=== PATIENT | female | born 1985 | race American Indian/Alaskan Native ===

== ENCOUNTER 2021-11-03 01:19 | Emergency (ER) | payer MEDICAID ==
[2021-11-03 03:44] LABS: Bilirubin,Urine NEG (Negative); Blood,Urine SM (Negative); Color,Urine Yellow (Yellow); Protein,Urine <15 mg/dL mg/dL (Negative); Urobilinogen,Urine < 2.0 mg/dL (<2.0)
[2021-11-03 03:45] LABS: HCG Qualitative,Urine Negative (Negative)
[2021-11-03 04:21] VITALS: BP 96/53
[2021-11-03] MEDS ORDERED: SODIUM CHLORIDE 0.9% 1000 ML 1,000 ML IV ONE (04:28)
[2021-11-03] MEDS ORDERED: cefTRIAXone/NS 1 GM/50 ML 1 GM/50 ML BAG IV ONE (04:29)
--- NOTE | 2021-11-03 04:33 | Emergency Department Report ---
HPI - General Chief Complaint: Urogenital-Female Time Seen by Provider: 11/03/21 03:28 - HPI HPI: 36-year-old female with no known past medical history presents complaining of approximately 1 week of urinary frequency as well as mid abdominal cramping pain. The patient states that the symptoms came on gradually and she describes the pain as a constant ache with occasional cramping. She also reports that she had sexual intercourse last night which caused the pain to be much worse. Of note, she reports she had a urinary tract infection 3 weeks ago which was treated with antibiotics with subsequent resolution of her symptoms until the a forementioned symptoms described. There are no known aggravating or alleviating factors. She has not tried anything for her symptoms. Her LMP was October 11. She does report that in general her blood pressure runs low. She denies any associated dysuria, vaginal bleeding, vaginal discharge, headache, fever/chills, vision change, neck pain, chest pain, shortness of breath, cough, nausea/vomiting, focal weakness, sensory changes, or any other complaints ED Past Medical Hx - Past Medical History Previous Medical History?: No - Medications Home Medications: Home Medications Medication Instructions Recorded Confirmed Last Taken Type Cefpodoxime Proxetil 100 mg PO BID #14 11/03/21 Unknown Rx Ibuprofen [Motrin 600 MG tab] 600 mg PO Q8H PRN #20 tablet 11/03/21 Unknown Rx ED Review of Systems ROS: Stated complaint: LOWER ABD PAIN Other details as noted in HPI Comment: All other systems reviewed and negative Constitutional: denies: chills, fever Eyes: denies: eye pain, vision change ENT: denies: throat pain, congestion Respiratory: denies: cough, shortness of breath Cardiovascular: denies: chest pain, palpitations Gastrointestinal: abdominal pain. denies: nausea, vomiting, diarrhea, constipation Genitourinary: frequency. denies: dysuria, hematuria, discharge Musculoskeletal: denies: back pain, arthralgia Skin: denies: rash, lesions Neurological: denies: headache, weakness, numbness Hematological/Lymphatic: denies: easy bleeding Physical Exam - Physical Exam Vital Signs: Vital Signs 11/03/21 11/03/21 11/03/21 02:53 03:31 03:45 Temperature 98.2 F Pulse Rate 85 77 Respiratory 16 16 Rate Blood Pressure 106/59 106/59 Blood Pressure 111/68 [Right] O2 Sat by Pulse 100 100 100 Oximetry 11/03/21 11/03/21 04:01 04:15 Temperature Pulse Rate 83 Respiratory 15 Rate Blood Pressure 96/53 96/53 Blood Pressure [Right] O2 Sat by Pulse 100 100 Oximetry Physical Exam: GENERAL: Well developed and well nourished. No acute distress HEAD: Normocephalic. No obvious signs of trauma. ENT: Dry mucous membranes. EYES: Extraocular movements are intact. Pupils are equal round and reactive to light bilaterally NECK: Supple. Full ROM is intact. Trachea is midline. LUNGS: Nonlabored breathing. Equal chest rise bilaterally. Clear to auscultation bilaterally. CARDIOVASCULAR: Regular rate and rhythm. No murmurs or rubs. VASCULAR: Cap refill < 2 seconds ABDOMEN: Abdomen is soft and nondistended. There is mild tenderness to palpation in the right upper quadrant and right lower quadrant without guarding or rebound tenderness. SKIN: Skin is warm and dry NEURO: Patient is awake, alert, and oriented. 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 No focal deficits. Normal motor and sensory exam throughout. Normal speech. MUSCULOSKELETAL: No obvious deformities. No significant tenderness. Normal ROM throughout. BACK/SPINE: No midline tenderness or step-offs of the C/T/L spine. No costovertebral angle tenderness. ED Course Vital Signs 11/03/21 11/03/21 11/03/21 02:53 03:31 03:45 Temperature 98.2 F Pulse Rate 85 77 Respiratory 16 16 Rate Blood Pressure 106/59 106/59 Blood Pressure 111/68 [Right] O2 Sat by Pulse 100 100 100 Oximetry 11/03/21 11/03/21 04:01 04:15 Temperature Pulse Rate 83 Respiratory 15 Rate Blood Pressure 96/53 96/53 Blood Pressure [Right] O2 Sat by Pulse 100 100 Oximetry ED Medical Decision Making - Lab Data Result diagrams: 11/03/21 04:27 11/03/21 04:27 Lab Results 11/03/21 11/03/21 11/03/21 Range/Units 03:20 04:27 04:27 WBC 10.0 (4.5-11.0) K/mm3 RBC 4.59 (3.65-5.03) M/mm3 Hgb 11.6 (10.1-14.3) gm/dl Hct 35.4 (30.3-42.9) % MCV 77 L (79-97) fl MCH 25 L (28-32) pg MCHC 33 (30-34) % RDW 14.4 (13.2-15.2) % Plt Count 220 (140-440) K/mm3 Lymph % (Auto) 15.1 (13.4-35.0) % [place] % (Auto) 6.8 (0.0-7.3) % Eos % (Auto) 1.0 (0.0-4.3) % Baso % (Auto) 0.3 (0.0-1.8) % Lymph # (Auto) 1.5 (1.2-5.4) K/mm3 [place] # (Auto) 0.7 (0.0-0.8) K/mm3 Eos # (Auto) 0.1 (0.0-0.4) K/mm3 Baso # (Auto) 0.0 (0.0-0.1) K/mm3 Seg Neutrophils % 76.8 H (40.0-70.0) % Seg Neutrophils # 7.7 (1.8-7.7) K/mm3 Sodium 138 (137-145) mmol/L Potassium 3.7 (3.6-5.0) mmol/L Chloride 102.5 (98-107) mmol/L Carbon Dioxide 22 (22-30) mmol/L Anion Gap 17 mmol/L BUN 10 (7-17) mg/dL Creatinine 0.7 (0.6-1.2) mg/dL Estimated GFR > 60 ml/min BUN/Creatinine Ratio 14 % Glucose 90 (65-100) mg/dL Calcium 9.3 (8.4-10.2) mg/dL Total Bilirubin 0.40 (0.1-1.2) mg/dL Direct Bilirubin < 0.2 (0-0.2) mg/dL Indirect Bilirubin 0.2 mg/dL AST 13 (5-40) units/L ALT 11 (7-56) units/L Alkaline Phosphatase 62 (35-129) units/L Total Protein 8.3 H (6.3-8.2) g/dL Albumin 4.5 (3.9-5) g/dL Albumin/Globulin Ratio 1.2 % Lipase 22 (13-60) units/L HCG, Qual (Negative) Urine Color Yellow (Yellow) Urine Turbidity Clear (Clear) Urine pH 6.0 (5.0-7.0) Ur Specific [place] 1.013 (1.003-1.030) Urine Protein <15 mg/dl (Negative) mg/dL Urine Glucose (UA) Neg (Negative) mg/dL Urine Ketones Neg (Negative) mg/dL Urine Blood Sm (Negative) Urine Nitrite Neg (Negative) Urine Bilirubin Neg (Negative) Urine Urobilinogen < 2.0 (<2.0) mg/dL Ur Leukocyte Esterase Tr (Negative) Urine WBC (Auto) 13.0 H (0.0-6.0) /HPF Urine RBC (Auto) 1.0 (0.0-6.0) /HPF U Epithel Cells (Auto) 1.0 (0-13.0) /HPF Urine HCG, Qual Negative (Negative) 11/03/21 Range/Units 04:27 WBC (4.5-11.0) K/mm3 RBC (3.65-5.03) M/mm3 Hgb (10.1-14.3) gm/dl Hct (30.3-42.9) % MCV (79-97) fl MCH (28-32) pg MCHC (30-34) % RDW (13.2-15.2) % Plt Count (140-440) K/mm3 Lymph % (Auto) (13.4-35.0) % [place] % (Auto) (0.0-7.3) % Eos % (Auto) (0.0-4.3) % Baso % (Auto) (0.0-1.8) % Lymph # (Auto) (1.2-5.4) K/mm3 [place] # (Auto) (0.0-0.8) K/mm3 Eos # (Auto) (0.0-0.4) K/mm3 Baso # (Auto) (0.0-0.1) K/mm3 Seg Neutrophils % (40.0-70.0) % Seg Neutrophils # (1.8-7.7) K/mm3 Sodium (137-145) mmol/L Potassium (3.6-5.0) mmol/L Chloride (98-107) mmol/L Carbon Dioxide (22-30) mmol/L Anion Gap mmol/L BUN (7-17) mg/dL Creatinine (0.6-1.2) mg/dL Estimated GFR ml/min BUN/Creatinine Ratio % Glucose (65-100) mg/dL Calcium (8.4-10.2) mg/dL Total Bilirubin (0.1-1.2) mg/dL Direct Bilirubin (0-0.2) mg/dL Indirect Bilirubin mg/dL AST (5-40) units/L ALT (7-56) units/L Alkaline Phosphatase (35-129) units/L Total Protein (6.3-8.2) g/dL Albumin (3.9-5) g/dL Albumin/Globulin Ratio % Lipase (13-60) units/L HCG, Qual Negative (Negative) Urine Color (Yellow) Urine Turbidity (Clear) Urine pH (5.0-7.0) Ur Specific [place] (1.003-1.030) Urine Protein (Negative) mg/dL Urine Glucose (UA) (Negative) mg/dL Urine Ketones (Negative) mg/dL Urine Blood (Negative) Urine Nitrite (Negative) Urine Bilirubin (Negative) Urine Urobilinogen (<2.0) mg/dL Ur Leukocyte Esterase (Negative) Urine WBC (Auto) (0.0-6.0) /HPF Urine RBC (Auto) (0.0-6.0) /HPF U Epithel Cells (Auto) (0-13.0) /HPF Urine HCG, Qual (Negative) - Radiology Data Radiology results: report reviewed - Medical Decision Making 36-year-old female presenting with 1 week of urinary frequency and mid abdominal cramping pain which was worsened by sexual intercourse last night. On initial assessment, the patient is afebrile and with normal vital signs. On physical examination she has dry mucous membranes and tenderness to palpation of the right upper quadrant > right lower quadrant without guarding or rebound. She has no CVA tenderness. No vaginal bleeding, dysuria, or discharge on review of systems. We will perform broad work-up with a full set of labs and CT of the abdomen pelvis to assess for evidence of cholecystitis versus pyelonephritis versus colitis versus pancreatitis versus appendicitis versus other abnormality to explain the patient's presentation. We will give 1 L of IV fluids and reassess frequently. Labs reveal no significant leukocytosis or anemia. Kidney function is normal and there are no significant electrolyte abnormalities. test is negative. Urinalysis is consistent with a urinary tract infection. We will give 1 dose of ceftriaxone. Repeat assessment, the patient reports that she already feels better after receiving IV fluids. Therefore I will not order pain medications at this time. CT of the abdomen pelvis reveals finding only of a small right ovarian cyst. On repeat assessment at 6:34 PM, the patient is resting comfortably in the bed. She reports she remains symptomatically improved. I spoke with the patient about the CT results as well as the results of the urinalysis and how it can result in pain and dyspareunia as well as the possibility of ovarian cyst rupture which can be particularly painful. We will planned to treat the patient with Cefpodoxime for urinary tract infection as an outpatient with instructions to follow-up with [facility]. The patient expressed understanding and agreement with this plan of care. She was given strict return precautions Critical care attestation.: If time is entered above; I have spent that time in minutes in the direct care of this critically ill patient, excluding procedure time. ED Disposition Clinical Impression: UTI (urinary tract infection), Right ovarian cyst Disposition: 01 HOME / SELF CARE / HOMELESS Is pt being admited?: No Condition: Stable Instructions: Urinary Tract Infection, Adult, Ovarian Cyst, [id number] Additional Instructions: Follow-up with your primary care doctor or [facility] over the next several days to have full STD testing. Return to the emergency department should you develop persistent/worsening pain, fever, nausea/vomiting, or any other new health concerns. Prescriptions: Cefpodoxime Proxetil 100 mg PO BID #14 Ibuprofen [Motrin 600 MG tab] 600 mg PO Q8H PRN #20 tablet PRN Reason: Pain Referrals: JEROME RESENDEZ MD [Primary Care Provider] - 3-5 Days KULWINDER JARQUIN MD [Staff Physician] - 3-5 Days [facility] [Provider Group] - 3-5 Days
[2021-11-03 04:45] LABS: Basophils % (Auto) 0.3 % (0.0-1.8); Eosinophils # (Auto) 0.1 K/mm3 (0.0-0.4); Hematocrit 35.4 % (30.3-42.9); Hemoglobin 11.6 gm/dl (10.1-14.3); Lymphocytes # (Auto) 1.5 K/mm3 (1.2-5.4); Lymphocytes % (Auto) 15.1 % (13.4-35.0); Mean Corpuscular HGB Conc 33 % (30-34); Mean Corpuscular Volume 77 fl (79-97); Monocytes # (Auto) 0.7 K/mm3 (0.0-0.8); Monocytes % (Auto) 6.8 % (0.0-7.3); Platelet Count 220 K/mm3 (140-440); Red Blood Count 4.59 M/mm3 (3.65-5.03); Red Cell Distribution Width 14.4 % (13.2-15.2)
[2021-11-03 05:07] LABS: Alanine Aminotransferase 11 units/L (7-56); Albumin 4.5 g/dL (3.9-5); Blood Urea Nitrogen 10 mg/dL (7-17); Calcium 9.3 mg/dL (8.4-10.2); Hemolysis Index 3
[2021-11-03 05:28] LABS: BUN/Creatinine Ratio 14; Bilirubin,Direct < 0.2 mg/dL (0-0.2)
--- NOTE | 2021-11-03 06:12 | Cat Scan Report ---
CT ABDOMEN AND PELVIS WITH CONTRAST INDICATION / CLINICAL INFORMATION: R.U.Q. and R.L.Q. tenderness. TECHNIQUE: Axial CT images were obtained through the abdomen and pelvis after 100 cc Omnipaque [address] scans at this location are performed using CT dose reduction for ALARA by means of automated exposure control. COMPARISON: None available. FINDINGS: LOWER CHEST: No significant abnormality of the imaged chest. LIVER: No significant abnormality. GALLBLADDER: No significant abnormality. BILE DUCTS: No significant abnormality. SPLEEN: No significant abnormality. PANCREAS: No significant abnormality. ADRENALS: No significant abnormality. RIGHT KIDNEY / URETER: No significant abnormality. LEFT KIDNEY / URETER: No significant abnormality. STOMACH / DUODENUM / SMALL BOWEL: No significant abnormality. COLON: No significant abnormality. APPENDIX: No significant abnormality. PERITONEUM: No free air. LYMPH NODES: No significant adenopathy. AORTA / ARTERIES: No significant abnormality. IVC / VEINS: No significant abnormality. URINARY BLADDER: No significant abnormality. REPRODUCTIVE ORGANS: Small right ovarian cyst. Uterus and ovaries otherwise are unremarkable. Small a mount of dependent free fluid within the pelvis thought to be physiologic. ADDITIONAL ABDOMINAL/PELVIC FINDINGS: None. SKELETAL SYSTEM: No significant abnormality. IMPRESSION: 1. Small right ovarian cyst likely physiologic. 2. Small amount of dependent free fluid within the pelvis likely physiologic. Signer Name: Lucio Thompson II, MD Signed: 11/03/2021 6:08 AM Workstation Name: [id number]
[2021-11-03] MEDS ORDERED: IBUPROFEN 600 MG TAB PO ONE (06:36)
== END 2021-11-03 07:09 | disposition home or self-care (01) ==
LOC: ED 01:19
DX: N39.0 Urinary tract infection, site not specified (principal); N83.201 Unspecified ovarian cyst, right side
CPT/HCPCS: 36415; 74177; 80048; 80076; 81001; 81025; 83690; 84703; 85025; 87076; 87086; 87186; 96365; 99284; J0696; J7030; Q9967; 96361; 96367; Q0162